=== PATIENT | male | born 1985 | race Caucasian/White ===

== ENCOUNTER 2016-11-08 09:57 | Emergency (ER) | payer OTHER ==
[2016-11-08] MEDS ORDERED: Ibuprofen 400 MG TAB ONE (12:06)
== END 2016-11-08 12:23 | disposition home or self-care (01) ==
LOC: ER 09:57 → FASTR 12:23
DX: S83.91XA Sprain of unspecified site of right knee, initial encounter (principal); G89.11 Acute pain due to trauma; X50.1XXA Overexertion from prolonged static or awkward postures, initial encounter; Y92.009 Unspecified place in unspecified non-institutional (private) residence as the place of occurrence of the external cause; F17.210 Nicotine dependence, cigarettes, uncomplicated